=== PATIENT | male | born 1955 | race Caucasian/White ===

== ENCOUNTER 2017-06-20 19:23 | Inpatient (IN) | payer OTHER ==
[~2017-06-20] VITALS: Ht 182.9 cm; Wt 115.7 kg
[2017-06-20] MEDS ORDERED: COZAAR50 MG PO (19:48)
[2017-06-20] MEDS ORDERED: HUMALOG100 UNIT/1 SQ (19:49)
[2017-06-20] MEDS ORDERED: SIMVASTATIN10 MG PO (19:49)
[2017-06-20] MEDS ORDERED: PLAVIX75 MG PO (19:49)
[2017-06-28] MEDS ORDERED: COUMADIN7.5 MG PO (09:36)
== END 2017-06-28 16:01 | disposition home health service (06) | DRG 65 ==
LOC: ER 19:23 → EDBD 19:25 → MEDI 06-21 10:02 → EDBD 06-21 10:02 → SEC-K 06-21 10:02 → MEDI 06-21 12:04
PROC: B345ZZZ Ultrasonography of Bilateral Common Carotid Arteries (ICD-10-PCS; principal; 2017-06-21)
PROC: B348ZZZ Ultrasonography of Bilateral Internal Carotid Arteries (ICD-10-PCS; 2017-06-21)
PROC: B246ZZZ Ultrasonography of Right and Left Heart (ICD-10-PCS; 2017-06-21)
PROC: B030ZZZ Magnetic Resonance Imaging (MRI) of Brain (ICD-10-PCS; 2017-06-21)
PROC: B33RZZZ Magnetic Resonance Imaging (MRI) of Intracranial Arteries (ICD-10-PCS; 2017-06-21)
PROC: 4A12X4Z Monitoring of Cardiac Electrical Activity, External Approach (ICD-10-PCS; 2017-06-21)
DX: I63.521 Cerebral infarction due to unspecified occlusion or stenosis of right anterior cerebral artery (principal); G81.94 Hemiplegia, unspecified affecting left nondominant side; R47.81 Slurred speech; E11.65 Type 2 diabetes mellitus with hyperglycemia; I10 Essential (primary) hypertension; Z86.73 Personal history of transient ischemic attack (TIA), and cerebral infarction without residual deficits
CPT/HCPCS: 70551

== ENCOUNTER 2017-10-25 14:10 | Emergency (ER) | payer OTHER ==
[~2017-10-25] VITALS: Ht 182.9 cm; Wt 110.7 kg
[~2017-10-25 14:10] MED LIST: COUMADIN7.5 MG PO; COZAAR50 MG PO; HUMALOG100 UNIT/1 SQ; PLAVIX75 MG PO; SIMVASTATIN10 MG PO
== END 2017-10-25 20:11 | disposition home or self-care (01) ==
LOC: ER 14:10
DX: R53.1 Weakness (principal)

== ENCOUNTER 2018-08-09 22:26 | Emergency (ER) | payer OTHER ==
[~2018-08-09] VITALS: Ht 182.9 cm; Wt 112.0 kg
[2018-08-09] MEDS ORDERED: XARELTO10 MG (22:42)
[2018-08-10] MEDS ORDERED: NORFLEX100MG PO (04:12)
== END 2018-08-10 04:32 | disposition home or self-care (01) ==
LOC: ER 22:26
DX: S51.022A Laceration with foreign body of left elbow, initial encounter (principal); S00.83XA Contusion of other part of head, initial encounter; S30.0XXA Contusion of lower back and pelvis, initial encounter; W18.09XA Striking against other object with subsequent fall, initial encounter; Y93.89 Activity, other specified; Y92.091 Bathroom in other non-institutional residence as the place of occurrence of the external cause; Y99.8 Other external cause status

== ENCOUNTER 2018-08-17 11:46 | Emergency (ER) | payer OTHER ==
[~2018-08-17] VITALS: Ht 182.9 cm; Wt 109.8 kg
[~2018-08-17 11:46] MED LIST changes: +NORFLEX100MG PO; +XARELTO10 MG
== END 2018-08-17 14:02 | disposition home or self-care (01) ==
LOC: ER 11:46
DX: Z48.02 Encounter for removal of sutures (principal)

== ENCOUNTER 2019-11-07 12:22 | Inpatient (IN) | payer OTHER ==
[~2019-11-07] VITALS: Ht 182.9 cm; Wt 110.7 kg
[2019-11-07] MEDS ORDERED: LOSARTAN POTAS100 MG PO (12:49)
[2019-11-07] MEDS ORDERED: SIMVASTATIN40 MG PO (12:49)
[2019-11-07] MEDS ORDERED: JANUMET 50-1,01 EACH PO (12:49)
[2019-11-07] MEDS ORDERED: PLAVIX75 MG PO (12:49)
[2019-11-07] MEDS ORDERED: GLUCERNA237 M1 PO (12:50)
[2019-11-07] MEDS ORDERED: GABAPENTIN400 MG PO (12:50)
[2019-11-07] MEDS ORDERED: ADMELOG100 UNIT/1 (12:50)
== END 2019-11-13 14:01 | disposition home or self-care (01) | DRG 66 ==
LOC: ER 12:22 → SURH 19:15 → MEDI 11-11 13:49
PROVIDERS: ADMIT Internal Medicine; ATTEND Internal Medicine
PROC: BW28ZZZ Computerized Tomography (CT Scan) of Head (ICD-10-PCS; principal; 2019-11-07)
PROC: B33RZZZ Magnetic Resonance Imaging (MRI) of Intracranial Arteries (ICD-10-PCS; 2019-11-07)
PROC: B345ZZZ Ultrasonography of Bilateral Common Carotid Arteries (ICD-10-PCS; 2019-11-08)
PROC: B348ZZZ Ultrasonography of Bilateral Internal Carotid Arteries (ICD-10-PCS; 2019-11-08)
PROC: 4A12X4Z Monitoring of Cardiac Electrical Activity, External Approach (ICD-10-PCS; 2019-11-08)
PROC: B24BZZZ Ultrasonography of Heart with Aorta (ICD-10-PCS; 2019-11-10)
DX: I63.9 Cerebral infarction, unspecified (principal); E11.649 Type 2 diabetes mellitus with hypoglycemia without coma; I48.91 Unspecified atrial fibrillation; I10 Essential (primary) hypertension; E11.40 Type 2 diabetes mellitus with diabetic neuropathy, unspecified; I44.1 Atrioventricular block, second degree; G47.33 Obstructive sleep apnea (adult) (pediatric); E11.65 Type 2 diabetes mellitus with hyperglycemia; Z96.41 Presence of insulin pump (external) (internal); I69.320 Aphasia following cerebral infarction; Z79.4 Long term (current) use of insulin
CPT/HCPCS: 70544

== ENCOUNTER 2020-02-07 16:11 | Inpatient (IN) | payer OTHER ==
[~2020-02-07] VITALS: Ht 182.9 cm; Wt 110.2 kg
[~2020-02-07 16:11] MED LIST changes: +ADMELOG100 UNIT/1; +GABAPENTIN400 MG PO; +GLUCERNA237 M1 PO; +JANUMET 50-1,01 EACH PO; +LOSARTAN POTAS100 MG PO; +SIMVASTATIN40 MG PO
[2020-02-07] MEDS ORDERED: LIPITOR40 M1 (16:28)
[2020-02-07] MEDS ORDERED: AVAPRO300 MG (16:28)
[2020-02-07] MEDS ORDERED: HORIZANT300 MG (16:29)
[2020-02-07] MEDS ORDERED: AMLODIPINE-OLM1 EAC2 (16:44)
== END 2020-02-14 18:19 | DRG 65 ==
LOC: ER 16:11 → ICU 22:02 → SURH 02-13 14:09 → ICU 02-13 14:15 → SURH 02-13 17:59
PROVIDERS: ADMIT Internal Medicine; ATTEND Internal Medicine
PROC: BW28ZZZ Computerized Tomography (CT Scan) of Head (ICD-10-PCS; principal; 2020-02-07)
PROC: B030ZZZ Magnetic Resonance Imaging (MRI) of Brain (ICD-10-PCS; 2020-02-08)
PROC: B246ZZZ Ultrasonography of Right and Left Heart (ICD-10-PCS; 2020-02-09)
PROC: B54CZZZ Ultrasonography of Left Lower Extremity Veins (ICD-10-PCS; 2020-02-11)
DX: I63.89 Other cerebral infarction (principal); I69.354 Hemiplegia and hemiparesis following cerebral infarction affecting left non-dominant side; I49.8 Other specified cardiac arrhythmias; I44.1 Atrioventricular block, second degree; I11.9 Hypertensive heart disease without heart failure; I69.322 Dysarthria following cerebral infarction; R47.81 Slurred speech; R53.1 Weakness; E11.9 Type 2 diabetes mellitus without complications; G47.33 Obstructive sleep apnea (adult) (pediatric); S91.319A Laceration without foreign body, unspecified foot, initial encounter; I87.2 Venous insufficiency (chronic) (peripheral); Z20.828 Contact with and (suspected) exposure to other viral communicable diseases
CPT/HCPCS: 70551

== ENCOUNTER 2021-07-05 06:53 | Outpatient (CLI) | payer OTHER ==
[~2021-07-05 06:53] MED LIST changes: +AMLODIPINE-OLM1 EAC2; +AVAPRO300 MG; +HORIZANT300 MG; +LIPITOR40 M1
== END 2021-07-05 07:08 | disposition home or self-care (01) ==
LOC: LAB 06:53
PROVIDERS: ATTEND Internal Medicine Hematology & Oncology
DX: D69.6 Thrombocytopenia, unspecified (principal); I10 Essential (primary) hypertension; E11.9 Type 2 diabetes mellitus without complications; E78.2 Mixed hyperlipidemia; I63.9 Cerebral infarction, unspecified

== ENCOUNTER 2021-07-05 07:53 | Outpatient (CLI) | payer OTHER | END 2021-07-05 08:07 | disposition home or self-care (01) | LOC: RAD 07:53 | PROVIDERS: ATTEND Internal Medicine Hematology & Oncology | DX: E04.2 Nontoxic multinodular goiter (principal); D69.6 Thrombocytopenia, unspecified; I10 Essential (primary) hypertension; E78.2 Mixed hyperlipidemia; I63.9 Cerebral infarction, unspecified; E08.42 Diabetes mellitus due to underlying condition with diabetic polyneuropathy; R91.1 Solitary pulmonary nodule ==

== ENCOUNTER 2021-07-25 18:36 | Emergency (ER) | payer OTHER ==
[~2021-07-25] VITALS: Ht 182.9 cm; Wt 112.5 kg
[2021-07-25] MEDS ORDERED: XARELTO20 MG PO (18:53)
[2021-07-25] MEDS ORDERED: DOXAZOSIN MESYLA1 MG PO (18:55)
== END 2021-07-25 20:44 | disposition home or self-care (01) ==
LOC: ER 18:36
DX: R53.81 Other malaise (principal); R58 Hemorrhage, not elsewhere classified; Z04.89 Encounter for examination and observation for other specified reasons; E11.9 Type 2 diabetes mellitus without complications; Z96.41 Presence of insulin pump (external) (internal)

== ENCOUNTER 2021-08-09 10:34 | Outpatient (CLI) | payer OTHER ==
[~2021-08-09 10:34] MED LIST changes: +DOXAZOSIN MESYLA1 MG PO; +XARELTO20 MG PO
== END 2021-08-09 10:44 | disposition home or self-care (01) ==
LOC: SONOGRAMA 10:34
PROVIDERS: ATTEND Pathology Anatomic Pathology & Clinical Pathology
DX: E03.8 Other specified hypothyroidism (principal)

== ENCOUNTER → 2021-08-20 08:00 | Outpatient (CLI) | payer OTHER | END | disposition home or self-care (01) | LOC: NUCLEAR 08:00 | PROVIDERS: ATTEND Specialist | DX: I73.9 Peripheral vascular disease, unspecified (principal) ==

== ENCOUNTER 2021-08-24 08:42 | Outpatient (CLI) | payer OTHER | END 2021-08-24 08:44 | disposition home or self-care (01) | LOC: NUCLEAR 08:42 | PROVIDERS: ATTEND Specialist | DX: I73.9 Peripheral vascular disease, unspecified (principal) ==

== ENCOUNTER 2021-10-21 08:02 | Outpatient (CLI) | payer OTHER | END 2021-10-21 08:07 | disposition home or self-care (01) | LOC: LAB 08:02 | PROVIDERS: ATTEND Internal Medicine Hematology & Oncology | DX: E55.9 Vitamin D deficiency, unspecified (principal); E78.2 Mixed hyperlipidemia; I10 Essential (primary) hypertension; D69.6 Thrombocytopenia, unspecified; D51.1 Vitamin B12 deficiency anemia due to selective vitamin B12 malabsorption with proteinuria; D51.3 Other dietary vitamin B12 deficiency anemia; E11.9 Type 2 diabetes mellitus without complications; I63.9 Cerebral infarction, unspecified ==

== ENCOUNTER 2022-06-14 06:38 | Outpatient (CLI) | payer OTHER | END 2022-06-14 06:48 | disposition home or self-care (01) | LOC: LAB 06:38 | PROVIDERS: ATTEND Internal Medicine Hematology & Oncology | DX: D50.8 Other iron deficiency anemias (principal); R79.9 Abnormal finding of blood chemistry, unspecified; I10 Essential (primary) hypertension; R74.02 Elevation of levels of lactic acid dehydrogenase [LDH]; K76.89 Other specified diseases of liver; D51.8 Other vitamin B12 deficiency anemias; E03.8 Other specified hypothyroidism; D69.6 Thrombocytopenia, unspecified; D51.1 Vitamin B12 deficiency anemia due to selective vitamin B12 malabsorption with proteinuria; D51.3 Other dietary vitamin B12 deficiency anemia; E78.2 Mixed hyperlipidemia; I63.9 Cerebral infarction, unspecified; E08.42 Diabetes mellitus due to underlying condition with diabetic polyneuropathy ==

== ENCOUNTER 2024-03-20 21:55 | Inpatient (IN) | payer OTHER ==
[~2024-03-20] VITALS: Ht 182.9 cm; Wt 111.1 kg
[2024-03-20] MEDS ORDERED: 0.9 % SODIUM CHLORIDE 1,000 ML IV SCH (22:30)
[2024-03-20] MEDS ORDERED: CEFTRIAXONE SODIUM 1,000 MG VIAL IV ONE (22:30)
[2024-03-20 23:12] LABS: HEMATOCRIT 31.8 % (39.0-48.0); MEAN CELL VOLUME 87.1 fL (80.0-100.00); MEAN CORPUSCULAR HGB CONC 34.4 g/dl (32.0-36.0); PLATELET COUNT 133 K/uL (150-450); RED BLOOD COUNT 3.65 M/uL (4.00-6.00); RED CELL DISTRIBUTION WIDTH 14.8 % (11.5-14.5)
[2024-03-20 23:17] LABS: HEMOGLOBIN 10.9 g/dL (13-16.00); MEAN CORPUSCULAR HEMOGLOBIN 29.8 pg (27.00-32.0)
[2024-03-20 23:37] LABS: ALBUMIN 3.1 gm/dL (3.4-5.0); BILIRUBIN TOTAL 1.21 mg/dL (0.3-1.2); CALCIUM 8.4 mg/dL (8.5-10.1); CREATININE SERUM 1.24 mg/dL (0.70-1.30); GFR 57.97; GLOBULINA 3.5 G/DL (2.4-3.5); POTASSIUM 4.09 mEq/L (3.5-5.1); TOTAL PROTEIN 6.6 gm/dL (6.4-8.2)
[2024-03-21 00:07] LABS: ALT/SGPT 53 U/L (12-78); AST/SGOT 79 U/L (15-37); LDH 356 U/L (87-241); PHOSPHOKINASE CREATININE 440 U/L (39-308)
[2024-03-21] MEDS ORDERED: TICAGRELOR 90 MG TABLET PO ONE (00:15)
[2024-03-21] MEDS ORDERED: ENOXAPARIN SODIUM 80 MG/0.8 ML SYRINGE SUBCUTANEO ONE (00:15)
[2024-03-21] MEDS ORDERED: LEVALBUTEROL HCL 1.25 MG/3 ML SOLUTION IH SCH ×2 (00:17→20:30)
[2024-03-21] MEDS ORDERED: NITROGLYCERIN 250 ML IV SCH (00:30)
[2024-03-21 03:45] LABS: PH,URINE 5.5 (5.0-8.0); URINE APPEARANCE Clear; URINE BILIRRUBIN Negative (NEGATIVE); URINE BLOOD Negative; URINE COLOR Yellow; URINE GLUCOSE Negative (NEGATIVE); URINE KETONE Negative (NEGATIVE); URINE LEUKOCYTE Trace; URINE NITRATE Negative; URINE PROTEIN Negative (NEGATIVE)
[2024-03-21 03:49] LABS: URINE BACTERIA 45.3 uL (0.0-1933); URINE EPITHELIAL CELLS 2.9 uL (0.0-38.8); URINE WBC 2.4 uL (0.0-23.2)
[2024-03-21 05:41] LABS: URINE RBC 1.8 uL (0.0-20.8)
[2024-03-21] MEDS ORDERED: ATORVASTATIN CALCIUM 40 MG TABLET PO SCH (11:40)
[2024-03-21] MEDS ORDERED: ENOXAPARIN SODIUM 100 MG/ML SYRINGE SUBCUTANEO SCH (11:41)
[2024-03-21] MEDS ORDERED: TICAGRELOR 90 MG TABLET PO SCH (11:41)
[2024-03-21] MEDS ORDERED: 0.9 % SODIUM CHLORIDE 1,000 ML IV SCH (11:45)
[2024-03-21] MEDS ORDERED: ONDANSETRON HCL 4 MG in 0.9 % SODIUM CHLORIDE 50 ML IV PRN (11:45)
[2024-03-21] MEDS ORDERED: IPRATROPIUM BROMIDE 0.5 MG/2.5 ML AMPUL.NEB IH SCH ×3 (11:57→20:30)
[2024-03-21] MEDS ORDERED: FUROsemide 20 MG/2 ML VIAL IV SCH (11:57)
[2024-03-21] MEDS ORDERED: DEXTROSE 50 % IN WATER 0.5 G/ML DISP.SYRIN IV PRN ×2 (12:00→20:45)
[2024-03-21] MEDS ORDERED: NITROGLYCERIN IN 5 % DEXTROSE 250 ML IV SCH (12:00)
[2024-03-21] MEDS ORDERED: INSULIN LISPRO 1,000 UNIT/10 ML UNITS SUBCUTANEO PRN ×2 (12:00→20:45)
[2024-03-21 12:05] LABS: ABG pCO2 33.1 mmHg (35-45); BASE EXCESS -0.6 mmol/l; BICARBONATE 22.5 mmol/l (23-25); SaO2 89.9 %; Tco2 23.5 mmol/l
[2024-03-21 12:12] LABS: ABG PO2 55.2 mmHg (80-100)
[2024-03-21 12:13] LABS: allen test SATISFACTORY; o2 32 %; puncture site RADIAL LEFT
[2024-03-21 13:22] VITALS: BP 115/56; O2SAT 94
[2024-03-21 13:32] VITALS: BP 115/56
[2024-03-21 15:08] VITALS: BP 126/70; O2SAT 100
[2024-03-21] MEDS ORDERED: BUDESONIDE 0.5 MG/2 ML AMPUL.NEB IH SCH (16:06)
[2024-03-21] MEDS ORDERED: IPRATROPIUM BROMIDE 0.5 MG/2.5 ML AMPUL.NEB IH STA (16:07)
[2024-03-21 16:20] LABS: ABG PH 7.462 (7.35-7.45); ABG PO2 60.4 mmHg (80-100); ABG pCO2 32.6 mmHg (35-45); BASE EXCESS -0.2 mmol/l; BICARBONATE 22.8 mmol/l (23-25); SaO2 92.3 %; Tco2 23.8 mmol/l
[2024-03-21 16:42] LABS: allen test SATISFACTORY; o2 50 %; puncture site RADIAL LEFT
[2024-03-21 19:00] VITALS: BP 115/51; O2SAT 100
[2024-03-21] MEDS ORDERED: BUDESONIDE 0.5 MG/2 ML AMPUL.NEB IH ONE (20:30)
[2024-03-21] MEDS ORDERED: METHYLPREDNISOLONE SOD SUCC 40 MG VIAL IV ONE (20:30)
[2024-03-21] MEDS ORDERED: ACETAMINOPHEN 500 MG GEL..CAP PO PRN (21:00)
[2024-03-21 21:10] LABS: ABG PH 7.474 (7.35-7.45); ABG PO2 142.8 mmHg (80-100); ABG pCO2 33.5 mmHg (35-45); BASE EXCESS 1.1 mmol/l; SaO2 99.3 %; Tco2 25.1 mmol/l
[2024-03-21 21:20] LABS: allen test SATISFACTORY; o2 100 %; puncture site RADIAL RIGHT
[2024-03-21] MEDS ORDERED: ASPIRIN 81 MG TAB.CHEW PO SCH (21:50)
[2024-03-21] MEDS ORDERED: CEFEPIME HCL 2,000 MG in 0.9 % SODIUM CHLORIDE 100 ML IV SCH (22:35)
[2024-03-21 23:01] VITALS: BP 103/59; O2SAT 93
[2024-03-22] VITALS (24 sets, daily range): BP systolic 114–154; BP diastolic 57–79; O2SAT 90–96
[2024-03-22] MEDS ORDERED: ENOXAPARIN SODIUM 100 MG/ML SYRINGE SUBCUTANEO SCH ×2 (00:50→09:00)
[2024-03-22] MEDS ORDERED: LEVOTHYROXINE SODIUM 88 MCG TABLET PO SCH (06:00)
[2024-03-22 06:19] LABS: HEMATOCRIT 30.6 % (39.0-48.0); HEMOGLOBIN 10.6 g/dL (13-16.00); MEAN CELL VOLUME 88.3 fL (80.0-100.00); MEAN CORPUSCULAR HEMOGLOBIN 30.5 pg (27.00-32.0); MEAN CORPUSCULAR HGB CONC 34.5 g/dl (32.0-36.0); PLATELET COUNT 164 K/uL (150-450); RED BLOOD COUNT 3.47 M/uL (4.00-6.00); RED CELL DISTRIBUTION WIDTH 14.8 % (11.5-14.5)
[2024-03-22] MEDS ORDERED: ATORVASTATIN CALCIUM 40 MG TABLET PO SCH (09:00)
[2024-03-22] MEDS ORDERED: FUROsemide 40 MG/4 ML VIAL IV SCH (09:00)
[2024-03-22] MEDS ORDERED: PANTOPRAZOLE SODIUM 40 MG/VIAL VIAL IV SCH (11:29)
[2024-03-22] MEDS ORDERED: PANTOPRAZOLE SODIUM 80 MG IV SCH (20:45)
[2024-03-22] MEDS ORDERED: PANTOPRAZOLE SODIUM 80 MG in 0.9 % SODIUM CHLORIDE 100 ML IV SCH (23:30)
[2024-03-23] VITALS (8 sets, daily range): BP systolic 143–155; BP diastolic 68–77; O2SAT 96–100
[2024-03-23 07:47] LABS: HEMATOCRIT 27.3 % (39.0-48.0); HEMOGLOBIN 9.6 g/dL (13-16.00); MEAN CELL VOLUME 86.9 fL (80.0-100.00); MEAN CORPUSCULAR HEMOGLOBIN 30.6 pg (27.00-32.0); MEAN CORPUSCULAR HGB CONC 35.2 g/dl (32.0-36.0); PLATELET COUNT 204 K/uL (150-450); RED BLOOD COUNT 3.14 M/uL (4.00-6.00); RED CELL DISTRIBUTION WIDTH 14.9 % (11.5-14.5)
[2024-03-23 07:59] LABS: ALBUMIN 2.7 gm/dL (3.4-5.0); BILIRUBIN TOTAL 0.86 mg/dL (0.3-1.2); CALCIUM 8.3 mg/dL (8.5-10.1); CREATININE SERUM 2.23 mg/dL (0.70-1.30); GFR 29.45; GLOBULINA 3.6 G/DL (2.4-3.5); POTASSIUM 4.41 mEq/L (3.5-5.1); TOTAL PROTEIN 6.3 gm/dL (6.4-8.2)
[2024-03-24] VITALS (18 sets, daily range): BP systolic 125–165; BP diastolic 61–77; O2SAT 81–100
[2024-03-24 07:29] LABS: ALBUMIN 2.8 gm/dL (3.4-5.0); BILIRUBIN TOTAL 0.81 mg/dL (0.3-1.2); CALCIUM 8.3 mg/dL (8.5-10.1); CREATININE SERUM 1.89 mg/dL (0.70-1.30); GFR 35.64; GLOBULINA 3.7 G/DL (2.4-3.5); POTASSIUM 4.42 mEq/L (3.5-5.1); TOTAL PROTEIN 6.5 gm/dL (6.4-8.2)
[2024-03-24] MEDS ORDERED: INSULIN NPH HUMAN ISOPHANE 1,000 UNITS/10 ML UNITS SUBCUTANEO SCH ×2 (09:00→21:00)
[2024-03-24] MEDS ORDERED: FUROsemide 20 MG/2 ML VIAL IV SCH (09:00)
[2024-03-24] MEDS ORDERED: CARVEDILOL 3.125 MG TABLET PO SCH (09:00)
[2024-03-24] MEDS ORDERED: ISOSORBIDE MONONITRATE 30 MG TABLET PO SCH (09:00)
[2024-03-25] VITALS (15 sets, daily range): BP systolic 129–162; BP diastolic 63–79; O2SAT 85–100
[2024-03-25 08:15] LABS: HEMOGLOBIN 9.7 g/dL (13-16.00); MEAN CELL VOLUME 88.5 fL (80.0-100.00); MEAN CORPUSCULAR HEMOGLOBIN 29.7 pg (27.00-32.0); MEAN CORPUSCULAR HGB CONC 33.5 g/dl (32.0-36.0); PLATELET COUNT 225 K/uL (150-450); RED BLOOD COUNT 3.28 M/uL (4.00-6.00); RED CELL DISTRIBUTION WIDTH 14.7 % (11.5-14.5)
[2024-03-25] MEDS ORDERED: AMLODIPINE BESYLATE 5 MG TABLET PO SCH (09:00)
[2024-03-25] MEDS ORDERED: CARVEDILOL 6.25 MG TABLET PO SCH (09:00)
[2024-03-25 09:49] LABS: ALBUMIN 2.8 gm/dL (3.4-5.0); BILIRUBIN TOTAL 1.08 mg/dL (0.3-1.2); CALCIUM 9.1 mg/dL (8.5-10.1); CREATININE SERUM 1.5 mg/dL (0.70-1.30); GFR 46.54; GLOBULINA 4.1 G/DL (2.4-3.5); TOTAL PROTEIN 6.9 gm/dL (6.4-8.2)
[2024-03-25 09:54] LABS: POTASSIUM 4.32 mEq/L (3.5-5.1)
[2024-03-26] VITALS (9 sets, daily range): BP systolic 136–165; BP diastolic 66–79; O2SAT 95–100
[2024-03-26] MEDS ORDERED: INSULIN REGULAR, HUMAN 1,000 UNIT/10 ML UNITS IV ONE (05:45)
[2024-03-26 06:53] LABS: HEMATOCRIT 26.3 % (39.0-48.0); HEMOGLOBIN 9.3 g/dL (13-16.00); MEAN CELL VOLUME 86.1 fL (80.0-100.00); MEAN CORPUSCULAR HEMOGLOBIN 30.5 pg (27.00-32.0); MEAN CORPUSCULAR HGB CONC 35.4 g/dl (32.0-36.0); RED BLOOD COUNT 3.06 M/uL (4.00-6.00); RED CELL DISTRIBUTION WIDTH 14.4 % (11.5-14.5)
[2024-03-26 07:21] LABS: PLATELET COUNT 217 K/uL (150-450)
[2024-03-26] MEDS ORDERED: ENOXAPARIN SODIUM 40 MG/0.4 ML SYRINGE SUBCUTANEO SCH (09:00)
[2024-03-26] MEDS ORDERED: CARVEDILOL 12.5 MG TABLET PO SCH (09:00)
[2024-03-26] MEDS ORDERED: CLOPIDOGREL BISULFATE 75 MG TABLET PO SCH (09:00)
[2024-03-26] MEDS ORDERED: INSULIN LISPRO 1,000 UNIT/10 ML UNITS SUBCUTANEO PRN (15:45)
[2024-03-26] MEDS ORDERED: DEXTROSE 50 % IN WATER 0.5 G/ML DISP.SYRIN IV PRN (15:45)
[2024-03-26] MEDS ORDERED: FUROsemide 20 MG/2 ML VIAL IV SCH (21:00)
[2024-03-27] VITALS (18 sets, daily range): BP systolic 131–149; BP diastolic 61–79; O2SAT 95–100
[2024-03-27] MEDS ORDERED: INSULIN NPH HUMAN ISOPHANE 1,000 UNITS/10 ML UNITS SUBCUTANEO SCH (09:00)
[2024-03-27] MEDS ORDERED: INSULIN GLARGINE,HUM.REC.ANLOG 1,000 UNITS/10 ML UNITS SUBCUTANEO STA (12:21)
[2024-03-27 12:36] LABS: HEMATOCRIT 30.1 % (39.0-48.0); HEMOGLOBIN 10.1 g/dL (13-16.00); MEAN CELL VOLUME 87.1 fL (80.0-100.00); MEAN CORPUSCULAR HEMOGLOBIN 29.2 pg (27.00-32.0); MEAN CORPUSCULAR HGB CONC 33.5 g/dl (32.0-36.0); PLATELET COUNT 265 K/uL (150-450); RED BLOOD COUNT 3.46 M/uL (4.00-6.00)
[2024-03-27 13:22] LABS: CALCIUM 8.5 mg/dL (8.5-10.1); CREATININE SERUM 1.04 mg/dL (0.70-1.30); GFR 71.02; POTASSIUM 4.15 mEq/L (3.5-5.1)
[2024-03-27] MEDS ORDERED: INSULIN LISPRO 1,000 UNIT/10 ML UNITS SUBCUTANEO SCH (17:00)
[2024-03-27 22:00] LABS: ob NEGATIVE (NEGATIVE)
[2024-03-28] VITALS (12 sets, daily range): BP systolic 121–139; BP diastolic 64–74; O2SAT 97–100
[2024-03-28] MEDS ORDERED: INSULIN LISPRO 1,000 UNIT/10 ML UNITS SUBCUTANEO SCH (08:00)
[2024-03-28] MEDS ORDERED: INSULIN GLARGINE,HUM.REC.ANLOG 1,000 UNITS/10 ML UNITS SUBCUTANEO SCH ×2 (09:00)
[2024-03-28 20:44] LABS: ABG PH 7.452 (7.35-7.45); ABG PO2 36.7 mmHg (80-100); ABG pCO2 45.1 mmHg (35-45); BASE EXCESS 5.9 mmol/l
[2024-03-28 20:45] LABS: BICARBONATE 30.8 mmol/l (23-25); Tco2 32.1 mmol/l; allen test SATISFACTORY; o2 32 %; puncture site RADIAL RIGHT
[2024-03-28 20:47] LABS: SaO2 74.4 %
[2024-03-29] VITALS (13 sets, daily range): BP systolic 107–143; BP diastolic 54–75; O2SAT 95–100
[2024-03-29] MEDS ORDERED: INSULIN GLARGINE,HUM.REC.ANLOG 1,000 UNITS/10 ML UNITS SUBCUTANEO SCH (09:32)
[2024-03-29] MEDS ORDERED: INSULIN LISPRO 1,000 UNIT/10 ML UNITS SUBCUTANEO SCH (12:00)
[2024-03-30] VITALS (7 sets, daily range): BP systolic 120–138; BP diastolic 58–77; O2SAT 97–100
[2024-03-30 08:25] LABS: ALBUMIN 2.5 gm/dL (3.4-5.0); BILIRUBIN TOTAL 0.72 mg/dL (0.3-1.2); CALCIUM 8.3 mg/dL (8.5-10.1); CREATININE SERUM 1.02 mg/dL (0.70-1.30); GFR 72.63; GLOBULINA 3.7 G/DL (2.4-3.5); POTASSIUM 4.01 mEq/L (3.5-5.1); TOTAL PROTEIN 6.2 gm/dL (6.4-8.2)
[2024-03-30 08:28] LABS: HEMATOCRIT 31.8 % (39.0-48.0); HEMOGLOBIN 10.7 g/dL (13-16.00); MEAN CELL VOLUME 86.2 fL (80.0-100.00); MEAN CORPUSCULAR HEMOGLOBIN 29.1 pg (27.00-32.0); MEAN CORPUSCULAR HGB CONC 33.8 g/dl (32.0-36.0); PLATELET COUNT 312 K/uL (150-450); RED BLOOD COUNT 3.69 M/uL (4.00-6.00); RED CELL DISTRIBUTION WIDTH 13.9 % (11.5-14.5)
[2024-03-30] MEDS ORDERED: RIVAROXABAN 20 MG TABLET PO SCH (17:00)
[2024-03-31 03:58] VITALS: BP 129/65; O2SAT 100
[2024-03-31 07:18] VITALS: BP 139/68; O2SAT 100
[2024-03-31 12:24] VITALS: BP 130/66; O2SAT 99
[2024-03-31 15:04] VITALS: BP 117/69; O2SAT 100
[2024-03-31 20:05] VITALS: BP 120/74; O2SAT 99
[2024-03-31] MEDS ORDERED: INSULIN GLARGINE,HUM.REC.ANLOG 1,000 UNITS/10 ML UNITS SUBCUTANEO SCH (21:00)
[2024-03-31 23:44] VITALS: BP 136/58; O2SAT 100
[2024-04-01 04:00] VITALS: BP 138/56; O2SAT 100
[2024-04-01 07:00] VITALS: BP 122/56; O2SAT 98
[2024-04-01 12:00] VITALS: BP 117/67; O2SAT 100
[2024-04-01 14:25] LABS: HEMATOCRIT 31.2 % (39.0-48.0); HEMOGLOBIN 10.8 g/dL (13-16.00); MEAN CELL VOLUME 85.1 fL (80.0-100.00); MEAN CORPUSCULAR HEMOGLOBIN 29.4 pg (27.00-32.0); MEAN CORPUSCULAR HGB CONC 34.5 g/dl (32.0-36.0); PLATELET COUNT 314 K/uL (150-450); RED BLOOD COUNT 3.66 M/uL (4.00-6.00); RED CELL DISTRIBUTION WIDTH 14.4 % (11.5-14.5)
[2024-04-01 14:41] LABS: INR 1.31
[2024-04-01 15:29] LABS: ALBUMIN 2.5 gm/dL (3.4-5.0); BILIRUBIN TOTAL 0.66 mg/dL (0.3-1.2); CALCIUM 8.2 mg/dL (8.5-10.1); CREATININE SERUM 1.11 mg/dL (0.70-1.30); GFR 65.88; GLOBULINA 3.8 G/DL (2.4-3.5); POTASSIUM 3.91 mEq/L (3.5-5.1); TOTAL PROTEIN 6.3 gm/dL (6.4-8.2)
[2024-04-01 15:30] VITALS: BP 112/62; O2SAT 98
[2024-04-01 17:58] VITALS: BP 122/71; O2SAT 95
[2024-04-01] MEDS ORDERED: INSULIN GLARGINE,HUM.REC.ANLOG 1,000 UNITS/10 ML UNITS SUBCUTANEO SCH (21:00)
[2024-04-01] MEDS ORDERED: ENOXAPARIN SODIUM 100 MG/ML SYRINGE SUBCUTANEO SCH (21:00)
[2024-04-01 21:52] VITALS: O2SAT 90
[2024-04-02] VITALS (8 sets, daily range): BP systolic 122–145; BP diastolic 60–75; O2SAT 94–100
[2024-04-02] MEDS ORDERED: INSULIN LISPRO 1,000 UNIT/10 ML UNITS SUBCUTANEO SCH (08:00)
[2024-04-02] MEDS ORDERED: INSULIN GLARGINE,HUM.REC.ANLOG 1,000 UNITS/10 ML UNITS SUBCUTANEO SCH (21:00)
[2024-04-03] VITALS (7 sets, daily range): BP systolic 96–154; BP diastolic 56–78; O2SAT 95–100
[2024-04-03 10:55] LABS: ABG PO2 130.3 mmHg (80-100); BASE EXCESS 3.8 mmol/l; BICARBONATE 26.4 mmol/l (23-25); SaO2 99.3 %; Tco2 27.4 mmol/l
[2024-04-03 10:56] LABS: ABG pCO2 33.9 mmHg (35-45); allen test SATISFACTORY; o2 50 %; puncture site RADIAL LEFT
[2024-04-03] MEDS ORDERED: ASPIRIN 81 MG TABLET.EC PO SCH (19:59)
[2024-04-04] VITALS (8 sets, daily range): BP systolic 112–138; BP diastolic 64–71; O2SAT 90–99
[2024-04-04 06:22] LABS: HEMATOCRIT 32.2 % (39.0-48.0); MEAN CELL VOLUME 85.9 fL (80.0-100.00); MEAN CORPUSCULAR HEMOGLOBIN 29.4 pg (27.00-32.0); MEAN CORPUSCULAR HGB CONC 34.2 g/dl (32.0-36.0); PLATELET COUNT 284 K/uL (150-450); RED BLOOD COUNT 3.75 M/uL (4.00-6.00); RED CELL DISTRIBUTION WIDTH 14.2 % (11.5-14.5)
[2024-04-04 06:41] LABS: CALCIUM 8.9 mg/dL (8.5-10.1); CREATININE SERUM 1.07 mg/dL (0.70-1.30); GFR 68.72; POTASSIUM 4.42 mEq/L (3.5-5.1)
[2024-04-04] MEDS ORDERED: RIVAROXABAN 20 MG TABLET PO SCH (09:00)
[2024-04-04] MEDS ORDERED: INSULIN LISPRO 1,000 UNIT/10 ML UNITS SUBCUTANEO SCH (17:00)
[2024-04-04] MEDS ORDERED: PANTOPRAZOLE SODIUM 40 MG TABLET.DR PO SCH (17:00)
[2024-04-04] MEDS ORDERED: INSULIN GLARGINE,HUM.REC.ANLOG 1,000 UNITS/10 ML UNITS SUBCUTANEO SCH (21:00)
[2024-04-05] VITALS (8 sets, daily range): BP systolic 119–148; BP diastolic 63–81; O2SAT 90–100
[2024-04-05 12:21] LABS: ABG PH 7.561 (7.35-7.45); ABG PO2 68.6 mmHg (80-100); ABG pCO2 32.4 mmHg (35-45); BASE EXCESS 6.6 mmol/l; BICARBONATE 28.5 mmol/l (23-25); SaO2 96.2 %; Tco2 29.5 mmol/l; allen test SATISFACTORY; o2 21 %; puncture site RADIAL LEFT
[2024-04-06] VITALS (9 sets, daily range): BP systolic 116–141; BP diastolic 61–68; O2SAT 90–100
[2024-04-06] MEDS ORDERED: FUROsemide 20 MG/2 ML VIAL IV SCH (21:00)
[2024-04-06] MEDS ORDERED: INSULIN GLARGINE,HUM.REC.ANLOG 1,000 UNITS/10 ML UNITS SUBCUTANEO SCH (21:00)
[2024-04-07] VITALS (8 sets, daily range): BP systolic 92–129; BP diastolic 59–70; O2SAT 94–100
[2024-04-07] MEDS ORDERED: INSULIN LISPRO 1,000 UNIT/10 ML UNITS SUBCUTANEO SCH (08:00)
[2024-04-07 08:34] LABS: HEMATOCRIT 34.7 % (39.0-48.0); HEMOGLOBIN 11.8 g/dL (13-16.00); MEAN CELL VOLUME 85.5 fL (80.0-100.00); MEAN CORPUSCULAR HEMOGLOBIN 29.2 pg (27.00-32.0); MEAN CORPUSCULAR HGB CONC 34.2 g/dl (32.0-36.0); PLATELET COUNT 250 K/uL (150-450); RED BLOOD COUNT 4.06 M/uL (4.00-6.00)
[2024-04-07 14:45] LABS: ABG PH 7.476 (7.35-7.45); ABG PO2 107.7 mmHg (80-100); ABG pCO2 43.4 mmHg (35-45); BASE EXCESS 6.9 mmol/l; BICARBONATE 31.3 mmol/l (23-25); SaO2 98.6 %; Tco2 32.7 mmol/l; o2 50 %
[2024-04-07 14:46] LABS: allen test SATISFACTORY; puncture site RADIAL RIGHT
[2024-04-08] VITALS (8 sets, daily range): BP systolic 129–132; BP diastolic 69–736; O2SAT 96–100
[2024-04-08] MEDS ORDERED: INSULIN GLARGINE,HUM.REC.ANLOG 1,000 UNITS/10 ML UNITS SUBCUTANEO SCH (09:00)
[2024-04-08 10:11] LABS: ABG PH 7.548 (7.35-7.45); ABG PO2 61.9 mmHg (80-100); ABG pCO2 33.8 mmHg (35-45); BASE EXCESS 6.6 mmol/l; BICARBONATE 28.8 mmol/l (23-25); SaO2 94.7 %; Tco2 29.9 mmol/l
[2024-04-08 10:12] LABS: allen test SATISFACTORY; o2 21 %; puncture site RADIAL RIGHT
[2024-04-08] MEDS ORDERED: TAMSULOSIN HCL 0.4 MG CAP PO STA (20:34)
[2024-04-08] MEDS ORDERED: FINASTERIDE 5 MG TABLET PO STA (20:35)
[2024-04-08] MEDS ORDERED: MINERAL OIL 30 ML BLIST.PACK PO ONE (21:15)
[2024-04-08] MEDS ORDERED: MAGNESIUM HYDROXIDE 400 MG/5 ML ML PO ONE (21:15)
[2024-04-08] MEDS ORDERED: LACTULOSE 20 G/30 ML BLIST.PACK PO ONE (21:15)
[2024-04-09] VITALS (9 sets, daily range): BP systolic 119–120; BP diastolic 62–75; O2SAT 85–100
[2024-04-09] MEDS ORDERED: TAMSULOSIN HCL 0.4 MG CAP PO SCH (09:00)
[2024-04-09] MEDS ORDERED: FINASTERIDE 5 MG TABLET PO SCH (09:00)
[2024-04-09] MEDS ORDERED: LACTULOSE 20 G/30 ML BLIST.PACK PO SCH (17:00)
[2024-04-10 01:59] VITALS: BP 114/64; O2SAT 98
[2024-04-10 08:00] VITALS: BP 128/57; O2SAT 97
[2024-04-10 16:00] VITALS: BP 119/74; O2SAT 95
[2024-04-10 16:17] VITALS: O2SAT 80
== END 2024-04-11 08:52 | disposition home or self-care (01) | DRG 280 ==
LOC: ER 21:55 → SEC-K 03-21 12:24 → ICU-2 03-21 12:24 → MEDJ 03-21 12:24 → ICU-2 03-21 16:10 → ICU 03-29 20:15 → SURH 04-01 18:01
PROVIDERS: General Practice; Internal Medicine; Internal Medicine Critical Care Medicine; Internal Medicine Infectious Disease; ADMIT Internal Medicine; ATTEND Internal Medicine
PROC: BB24Y0Z Computerized Tomography (CT Scan) of Bilateral Lungs using Other Contrast, Unenhanced and Enhanced (ICD-10-PCS; principal; 2024-03-21)
PROC: B246ZZZ Ultrasonography of Right and Left Heart (ICD-10-PCS; 2024-03-21)
PROC: 3E0F7GC Introduction of Other Therapeutic Substance into Respiratory Tract, Via Natural or Artificial Opening (ICD-10-PCS; 2024-03-21)
PROC: 5A09457 Assistance with Respiratory Ventilation, 24-96 Consecutive Hours, Continuous Positive Airway Pressure (ICD-10-PCS; 2024-03-23)
PROC: 0JBQ3ZZ Excision of Right Foot Subcutaneous Tissue and Fascia, Percutaneous Approach (ICD-10-PCS; 2024-03-27)
PROC: BB24ZZZ Computerized Tomography (CT Scan) of Bilateral Lungs (ICD-10-PCS; 2024-03-30)
PROC: 4A12X4Z Monitoring of Cardiac Electrical Activity, External Approach (ICD-10-PCS; 2024-04-01)
PROC: 0JBQ3ZZ Excision of Right Foot Subcutaneous Tissue and Fascia, Percutaneous Approach (ICD-10-PCS; 2024-04-03)
PROC: 0JBQ3ZZ Excision of Right Foot Subcutaneous Tissue and Fascia, Percutaneous Approach (ICD-10-PCS; 2024-04-10)
DX: I21.4 Non-ST elevation (NSTEMI) myocardial infarction (principal); J18.9 Pneumonia, unspecified organism; J96.91 Respiratory failure, unspecified with hypoxia; J90 Pleural effusion, not elsewhere classified; N17.8 Other acute kidney failure; K92.2 Gastrointestinal hemorrhage, unspecified; J81.1 Chronic pulmonary edema; L97.518 Non-pressure chronic ulcer of other part of right foot with other specified severity; I11.0 Hypertensive heart disease with heart failure; Z79.4 Long term (current) use of insulin; I48.91 Unspecified atrial fibrillation; E11.65 Type 2 diabetes mellitus with hyperglycemia; D64.89 Other specified anemias; E11.621 Type 2 diabetes mellitus with foot ulcer; I49.8 Other specified cardiac arrhythmias

== ENCOUNTER 2025-01-29 08:51 | Outpatient (CLI) | payer OTHER ==
[2025-01-29 10:03] LABS: BASO % 0.6 % (0.1-1.2); EOS # 0.21 (0.04-0.54); EOS % 4.2 % (0.7-7.0); LYMPH # 1.86 (1.18-3.74); LYMPH % 36.9 % (19.3-53.1); MEAN PLATELET VOLUME 8.50 fl (9.4-12.4); MONO # 0.42 (0.24-0.82); MONO % 8.3 % (4.7-12.5); NEUT # 2.51 (1.56-6.13); NEUT % 49.8 % (34.0-71.1); RED CELL DISTRIBUTION WIDTH 13.5 % (11.6-14.4)
[2025-01-29 11:09] LABS: % SATURACION 21.1 % (20-50); ALT/SGPT 36.0 U/L (12-78); AST/SGOT 30.0 U/L (15-37); BILIRUBIN TOTAL 1.05 mg/dL (0.3-1.2); BUN CREA RATIO 12.0 (7.0-25.0); CREATININE SERUM 1.14 mg/dL (0.70-1.30); FE 69.0 ug/dl (65-175); GFR 63.69; GLOBULINA 3.7 G/DL (2.4-3.5); GLUCOSE FASTING 104.0 mg/dL (65-100); LDH 174.0 U/L (87-241); OSMOLALITY SERUM 288.0 MOSM/KG (275-295); PROSTATIC SPECIFIC ANTIGEN 3.22 NG/ML (0.010-4.00); T4 FREE 1.16 NG/ML (0.76-1.46); TSH 2.93 uIU/mL (0.358-3.74)
[2025-01-29 12:16] LABS: FOLIC ACID > 20.00 ng/ml (4.78-20)
== END 2025-01-29 12:26 | disposition home or self-care (01) ==
LOC: LAB 08:51
PROVIDERS: ATTEND Internal Medicine Hematology & Oncology
DX: C61 Malignant neoplasm of prostate (principal); C73 Malignant neoplasm of thyroid gland; D69.6 Thrombocytopenia, unspecified; D51.1 Vitamin B12 deficiency anemia due to selective vitamin B12 malabsorption with proteinuria; D51.3 Other dietary vitamin B12 deficiency anemia; I10 Essential (primary) hypertension; E11.9 Type 2 diabetes mellitus without complications; E78.2 Mixed hyperlipidemia; I63.9 Cerebral infarction, unspecified; E03.8 Other specified hypothyroidism; K86.2 Cyst of pancreas; R97.0 Elevated carcinoembryonic antigen [CEA]; D50.8 Other iron deficiency anemias; R79.9 Abnormal finding of blood chemistry, unspecified; R74.02 Elevation of levels of lactic acid dehydrogenase [LDH]; K76.89 Other specified diseases of liver